=== PATIENT | male | born 1970 | race American Indian/Alaskan Native ===

== ENCOUNTER 2017-03-09 09:08 | Outpatient (CLI) | payer OTHER ==
[2017-03-09 10:01] LABS: Blood Urea Nitrogen 11 mg/dL (9-20)
--- NOTE | 2017-03-09 11:28 | Cat Scan Report ---
CT abdomen with contrast Palpable right upper quadrant mass. Following IV injection of contrast and oral contrast transverse images are obtained from the lower chest to the iliac crests with coronal and sagittal 2-D reformatted images. There is a small subpleural nodule in the posterior right chest. There is a focal area of opacity in the right lower lobe. The lungs otherwise look clear. The liver is normal in size and contour. No lesion noted. No evidence of abdominal mass. The abdominal organs and retroperitoneal structures appear generally unremarkable. The partially opacified bowel and mesentery appear normal. Impressions: 1. Nonspecific right lower lobe opacity/infiltrate. Small pleural based nodule. 2. No abdominal pathology identified.
== END 2017-03-09 09:09 | disposition home or self-care (01) ==
LOC: CT 09:08
DX: R91.1 Solitary pulmonary nodule (principal); R19.01 Right upper quadrant abdominal swelling, mass and lump; I10 Essential (primary) hypertension; E78.2 Mixed hyperlipidemia
CPT/HCPCS: 36415; 74160; 82565; 84520; Q9967